=== PATIENT | female | born 1940 | race Caucasian/White ===

== ENCOUNTER 2019-04-24 12:36 | Emergency (ER) | payer OTHER ==
[~2019-04-24] VITALS: Ht 160 cm; Wt 57.2 kg
[2019-04-24] MEDS ORDERED: HYDROMORPHONE 1 MG/1 ML DISP.SYRIN IV ONE ×3 (12:45→15:30)
[2019-04-24] MEDS ORDERED: ONDANSETRON 4 MG/2 ML VIAL IV ONE ×2 (12:45→15:30)
[2019-04-24] MEDS ORDERED: HYDROMORPHONE 1 MG/1 ML DISP.SYRIN ONE ×3 (12:55→15:27)
[2019-04-24] MEDS ORDERED: ONDANSETRON 4 MG/2 ML VIAL ONE ×2 (12:55→15:28)
[2019-04-24 13:06] LABS: BASOPHILS # (AUTO) 0.1 K/uL (0.0-8.0); BASOPHILS % (AUTO) 0.7 % (0.0-2.0); EOSINOPHILS # (AUTO) 0.2 K/uL (0.0-0.7); EOSINOPHILS % (AUTO) 2.5 % (0.0-7.0); HEMATOCRIT 41.9 % (31.2-41.9); HEMOGLOBIN 14.2 g/dL (10.9-14.3); LYMPHOCYTES # (AUTO) 0.6 K/uL (20.0-40.0); LYMPHOCYTES % (AUTO) 7.8 % (20.5-51.5); MEAN CORPUSCULAR HEMOGLOBIN 29.6 uug (24.7-32.8); MEAN CORPUSCULAR HGB CONC 34 g/dL (32.3-35.6); MEAN CORPUSCULAR VOLUME 87.6 fL (75.5-95.3); MONOCYTES # (AUTO) 0.4 K/uL (2.0-10.0); MONOCYTES % (AUTO) 4.8 % (0.0-11.0); NEUTROPHILS # (AUTO) 6.9 K/uL (1.8-8.9); NEUTROPHILS % (AUTO) 84.2 % (38.5-71.5); PLATELET COUNT (AUTO) 140 K/uL (179-408); RED BLOOD CELL COUNT(AUTO) 4.78 MIL/uL (3.63-4.92); WHITE BLOOD COUNT (AUTO) 8.2 K/uL (3.8-11.8)
--- NOTE | 2019-04-24 13:08 | NUR ---
PT IS IN ROOM #1A. DR FRANCO EVALUATED THE PT.
[2019-04-24 13:21] LABS: CARBON DIOXIDE 24 mmol/L (21-32); CHLORIDE 96 mmol/L (98-107); CREATININE 1.1 mg/dL (0.6-1.3); GLUCOSE 96 mg/dL (74-106); POTASSIUM 4.6 mmol/L (3.5-5.1); UREA NITROGEN, BLOOD 22 mg/dL (7-18)
[2019-04-24 13:27] LABS: ALANINE AMINOTRANSFERASE 21 U/L (14-59); ALKALINE PHOSPHATASE 128 U/L (50-136); ASPARTATE AMINOTRANSFERASE 24 U/L (15-37); BILIRUBIN,TOTAL 0.6 mg/dL (0.2-1.0); TOTAL PROTEIN, SERUM 8.3 g/dL (6.4-8.2)
[2019-04-24 13:28] LABS: BILIRUBIN,DIRECT < 0.1 mg/dL (0.0-0.2)
[2019-04-24] MEDS ORDERED: LOPERAMIDE HCL 2 MG CAPSULE PO ONE (14:00)
[2019-04-24] MEDS ORDERED: LABETALOL HCL 100 MG/20 ML VIAL IV ONE ×3 (14:00→16:00)
[2019-04-24] MEDS ORDERED: LABETALOL HCL 100 MG/20 ML VIAL ONE (14:04)
[2019-04-24] MEDS ORDERED: LOPERAMIDE HCL 2 MG CAPSULE ONE (14:05)
--- NOTE | 2019-04-24 15:09 | NUR ---
DR FRANCO TALKED TO [facility] SKATE SHOP ATTENDANT. PT IS GOING TO BE ACCEPTED BY [facility]. CASE # [id number].
[2019-04-24] MEDS ORDERED: METOCLOPRAMIDE HCL 10 MG/2 ML VIAL ONE (16:00)
[2019-04-24] MEDS ORDERED: METOCLOPRAMIDE HCL 10 MG/2 ML VIAL IV ONE (16:00)
[2019-04-24] MEDS ORDERED: diphenhydrAMINE 50 MG/1 ML VIAL IV ONE (16:00)
[2019-04-24] MEDS ORDERED: diphenhydrAMINE 50 MG/1 ML VIAL ONE (16:00)
[2019-04-24 16:04] VITALS: BP 203/98
--- NOTE | 2019-04-24 16:28 | NUR ---
PT WAS TRANSFERED TO [facility] VIA [facility]BULANCE. ADMITTING MD IS DR PIERRE. REPORT WAS GIVEN TO CERTIFIED INCOME TAX PREPARERERIC HAIR. NO S/S AT THE TIME OF TRANSFER.
== END 2019-04-24 16:37 | disposition short-term general hospital (02) ==
LOC: ER 12:36
DX: I10 Essential (primary) hypertension (principal); R51 Headache; J45.909 Unspecified asthma, uncomplicated; Z60.2 Problems related to living alone; Z90.49 Acquired absence of other specified parts of digestive tract
CPT/HCPCS: 36415; 70450; 71045; 80048; 80076; 84484; 85025; 85730; 93005; 96374; 96375; 96376; 99285; J1170 ×3; J1200; J2405 ×2; J2765; J3490; 70030-TC

== ENCOUNTER 2020-09-23 00:31 | Inpatient (IN) | payer OTHER ==
[~2020-09-23] VITALS: Ht 154.9 cm; Wt 61.7 kg
[2020-09-23] VITALS (35 sets, daily range): BP systolic 68–166; BP diastolic 37–93
--- NOTE | 2020-09-23 00:50 | NUR ---
Pt BIB [facility] from home c/o generalized body weakness and stated she has "chills". Pt A/O x3, no SOB or labored breathing, afebrile. Denies CP/pressure. Clear speech, complete sentences. No GI/ distress.
--- NOTE | 2020-09-23 01:00 | NUR ---
Dr. Martínez at bedside, MSE in progress.
[2020-09-23] MEDS ORDERED: ACETAMINOPHEN ES 500 MG TABLET PO ONE (01:30)
[2020-09-23] MEDS ORDERED: IV NORMAL SALINE 1000 ML BAG IV ONE ×3 (01:30→03:45)
[2020-09-23] MEDS ORDERED: IBUPROFEN 600 MG TABLET PO ONE (01:30)
[2020-09-23] MEDS ORDERED: CEFEPIME HCL 2 G in IV DEXTROSE 5% 100 ML IV ONE (01:30)
[2020-09-23] MEDS ORDERED: IBUPROFEN 600 MG TABLET ONE (01:45)
[2020-09-23] MEDS ORDERED: ACETAMINOPHEN ES 500 MG TABLET ONE (01:45)
[2020-09-23] MEDS: levoFLOXacin 750 MG/D5W 150 ML PIGGYBACK IV ONE (01:50)
[2020-09-23 02:06] LABS: HEMATOCRIT 44.3 % (31.2-41.9); MEAN CORPUSCULAR HEMOGLOBIN 29.6 uug (24.7-32.8); MEAN CORPUSCULAR VOLUME 89.4 fL (75.5-95.3); PLATELET COUNT (AUTO) 171 K/uL (179-408)
[2020-09-23 02:12] LABS: CARBON DIOXIDE 23 mmol/L (21-32); CHLORIDE 93 mmol/L (98-107); CREATININE 1.4 mg/dL (0.6-1.3); GLUCOSE 97 mg/dL (74-106); POTASSIUM 5.1 mmol/L (3.5-5.1); UREA NITROGEN, BLOOD 34 mg/dL (7-18)
[2020-09-23 02:16] LABS: MAGNESIUM 2.1 mg/dL (1.8-2.4); PHOSPHOROUS 3.5 mg/dL (2.5-4.9)
[2020-09-23 02:21] LABS: ALANINE AMINOTRANSFERASE 25 U/L (14-59); ALKALINE PHOSPHATASE 131 U/L (50-136); ASPARTATE AMINOTRANSFERASE 30 U/L (15-37); BILIRUBIN,DIRECT 0.2 mg/dL (0.0-0.2); BILIRUBIN,TOTAL 0.7 mg/dL (0.2-1.0); TOTAL PROTEIN, SERUM 8.6 g/dL (6.4-8.2)
[2020-09-23] MEDS ORDERED: ASPIRIN 81 MG TAB.CHEW PO ONE (02:30)
[2020-09-23] MEDS ORDERED: CLOPIDOGREL 75 MG TABLET PO ONE (02:30)
[2020-09-23] MEDS ORDERED: ENOXAPARIN SODIUM 60 MG/0.6 ML DISP.SYRIN SQ ONE ×2 (02:30→03:14)
--- NOTE | 2020-09-23 02:45 | NUR ---
Pt taken down for CT.
[2020-09-23] MEDS ORDERED: levoFLOXacin 750MG/D5W 150 ML IV ONE (02:51)
[2020-09-23 02:52] LABS: *BILIRUBIN,URIN NEGATIVE (NEGATIVE); *BLOOD, URINE 2+ (NEGATIVE); *COLOR,URINE YELLOW (YELLOW); *KETONES,URINE NEGATIVE (NEGATIVE); *UROBILINOGEN,URINE 0.2 E.U./dl (NORMAL); LEUKOCYTE ESTERASE ,URINE 2+ (NEGATIVE); NITRITE, URINE POSITIVE (NEGATIVE); PH,URINE 6.5 (5.0-8.0); UGLUCOSE NEGATIVE (NEGATIVE)
[2020-09-23 03:01] LABS: *CLARITY,URINE HAZY (CLEAR)
[2020-09-23] MEDS ORDERED: CLOPIDOGREL 75 MG TABLET ONE (03:14)
[2020-09-23] MEDS ORDERED: ASPIRIN 81 MG TAB.CHEW ONE (03:14)
[2020-09-23 03:17] LABS: BACTERIA,URINE MANY /HPF (NONE SEEN); SQUAMOUS EPITHELIAL CELL,UR MODERATE /HPF (NONE SEEN); WBC,URINE 20-50 /HPF (0-3)
[2020-09-23] MEDS ORDERED: CEFTRIAXONE 2 G in IV DEXTROSE 5% 100 ML IV ONE (03:30)
[2020-09-23 03:31] LABS: ABG HCO3 14.1 mmol/L; ABG PCO2 26.9 mmHg (35.0-45.0); ABG PH 7.337 (7.350-7.450); ABG PO2 62.1 mmHg (75.0-100.0); ABG SITE RIGHT RADIAL; ABG TOTAL HEMOGLOBIN 13.8 G/dL (12.0-16.0); COHb 1.1 % (0.5-1.5); MetHb 0.3 % (0.0-1.5); O2Hb 90.2 % (94.0-97.0)
[2020-09-23] MEDS ORDERED: VANCOMYCIN IV 1,250 MG in IV DEXTROSE 5% 250 ML IV ONE (03:45)
[2020-09-23] MEDS ORDERED: PIPERACILLIN SODIUM/TAZOBACTAM 3.375 G in IV DEXTROSE 5% 50 ML IV ONE (03:45)
[2020-09-23] MEDS ORDERED: SODIUM BICARBONATE 8.4% 50 MEQ/50 ML VIAL IV ONE (03:45)
--- NOTE | 2020-09-23 03:51 | NUR ---
Called [facility], Sy Suh paged.
[2020-09-23] MEDS ORDERED: METHYLCELLULOSE PO (04:12)
[2020-09-23] MEDS ORDERED: TRIA80OI2 TP (04:12)
[2020-09-23] MEDS ORDERED: CLON0.5T4 PO (04:12)
[2020-09-23] MEDS ORDERED: SPIR25TA6 PO (04:12)
[2020-09-23] MEDS ORDERED: COLC0.6C3 PO (04:12)
[2020-09-23] MEDS ORDERED: MULT-213 PO (04:12)
[2020-09-23] MEDS ORDERED: TERBINAFINE TOP (04:12)
[2020-09-23] MEDS ORDERED: ACET-73 PO (04:12)
[2020-09-23] MEDS ORDERED: LEVO50TA8 PO (04:12)
[2020-09-23] MEDS ORDERED: cholecalciferol PO (04:12)
[2020-09-23] MEDS ORDERED: FAMO20TA8 PO (04:12)
[2020-09-23] MEDS ORDERED: CLON0.3T PO (04:12)
[2020-09-23] MEDS ORDERED: ALBU8.5H8 IH (04:12)
[2020-09-23] MEDS ORDERED: ATEN50TA PO (04:12)
[2020-09-23] MEDS ORDERED: ROSU10TA2 PO (04:12)
[2020-09-23] MEDS ORDERED: VANCOMYCIN HCL 500 MG VIAL ONE (04:19)
[2020-09-23] MEDS ORDERED: VANCOMYCIN 1000 MG VIAL ONE (04:19)
[2020-09-23] MEDS ORDERED: CEFTRIAXONE 1 G VIAL ONE (04:19)
[2020-09-23] MEDS ORDERED: SODIUM BICARBONATE 8.4% 50 MEQ/50 ML DISP.SYRIN IV ONE (04:20)
[2020-09-23] MEDS ORDERED: PIPERACILLIN SODIUM/TAZO 3.375 GM VIAL ONE (04:20)
--- NOTE | 2020-09-23 04:20 | NUR ---
Pt assisted using bed flores, denies any pain while urinating, no foul odor, and clear.
[2020-09-23] MEDS ORDERED: COLCHICINE 0.6 MG TABLET PO PRN (05:00)
[2020-09-23] MEDS ORDERED: ALBUTEROL SULFATE 8 GM HFA.AER.AD IH PRN (05:00)
[2020-09-23] MEDS ORDERED: NOREPINEPHRINE BITARTRATE 8 MG in IV NORMAL SALINE 242 ML IV PRN ×3 (05:30→13:30)
--- NOTE | 2020-09-23 05:36 | NUR ---
Gave report to jose raul Rebolledo going to tele room 311.
--- NOTE | 2020-09-23 06:21 | NUR ---
Patient is resting comfortably in bed with eyes closed. Breathing even and unlabored.
--- NOTE | 2020-09-23 07:06 | NUR ---
Pt. admitted to tele , under care of Dr. Sy Suh Dx: sepsis Belongs List completed
--- NOTE | 2020-09-23 07:08 | NUR ---
Received this admission from ER, per nasir this 79 female, with the chief complaint of weakness, shaking, sweating with the diagnosis Sepsis UTI, Hyponatremia. Transferred to bed comfortably. Routine admission care rendered. Awake, alert,oriented x 4, able to move all extremities on purpose. Placed on Tele SR 79. Wallace catheter to drainage bag with yellow urine.
[2020-09-23] MEDS ORDERED: MAGNESIUM HYDROXIDE 30 ML LIQUID UDC PO PRN (08:00)
[2020-09-23] MEDS ORDERED: Z GUARD REMEDY PASTE 57 GM TUBE TOP PRN (08:00)
[2020-09-23] MEDS ORDERED: CLONIDINE HCL 0.3 MG TABLET PO SCH (09:00)
[2020-09-23] MEDS ORDERED: FAMOTIDINE 20 MG TABLET PO SCH (09:00)
[2020-09-23] MEDS ORDERED: SPIRONOLACTONE 25 MG TABLET PO SCH (09:00)
[2020-09-23] MEDS: ASPIRIN EC 81 MG TABLET.DR PO SCH (09:10)
[2020-09-23] MEDS: LEVOTHYROXINE SODIUM 50 MCG TABLET PO SCH (09:10)
[2020-09-23] MEDS: ATENOLOL 50 MG TABLET PO SCH (09:11)
[2020-09-23] MEDS: ALBUTEROL SULFATE 2.5 MG/3 ML NEBU NEB PRN ×4 (09:38→23:14)
--- NOTE | 2020-09-23 11:15 | NUR ---
Noted confusion when patient was talking to the son, further assessment done, patient speaking in Vietnamese now, oriented to name only. Vital signs taken, noted hypotension. Able to move all extremities on purpose. Bala Goodrich informed.
--- NOTE | 2020-09-23 11:45 | NUR ---
NS bolus given as ordered. CT head stat called.
[2020-09-23] MEDS ORDERED: MEROPENEM 1 G in IV NORMAL SALINE 100 ML IV SCH (12:00)
[2020-09-23] MEDS ORDERED: IV NS 1000 ML 1,000 ML IV ONE (12:15)
[2020-09-23] MEDS ORDERED: IV LACTATED RINGERS SOLUTION 1,000 ML IV ONE (12:15)
[2020-09-23 12:35] LABS: CARBON DIOXIDE 18 mmol/L (21-32); CHLORIDE 101 mmol/L (98-107); CREATININE 1.6 mg/dL (0.6-1.3); GLUCOSE 94 mg/dL (74-106); UREA NITROGEN, BLOOD 32 mg/dL (7-18)
--- NOTE | 2020-09-23 13:36 | NUR ---
still hypotensive. LR bolus started. Transferred to CCU as ordered
--- NOTE | 2020-09-23 14:04 | NUR ---
Received patient from 3rd floor nurse Eugenia. Patient alert oriented x3, somewhat confused about the date. Neuro checks performed, patient able to follow commands. Connected to monitoring and MAP >60 at this time, 2L nasal cannula, HR 85 bpm.
--- NOTE | 2020-09-23 14:07 | NUR ---
Notified Dr. Zuñiga of patients admission to ICU and status of hypotension, confusion and inquired about anticoagulation. Dr. Zuñiga stated to continue as planned with Levophed and no anticoagulation.
--- NOTE | 2020-09-23 14:15 | NUR ---
DEE DURAND SPEECH LANGUAGE PATHOLOGY ASSISTANT AT BEDSIDE FOR MID LINE INSERTION
--- NOTE | 2020-09-23 15:10 | NUR ---
CALLED DEE DURAND RE: PRELIMINARY BLOOD CULTURE RESULTS FROM MILLIE @ LAB : GRAM (-) ON 2 SETS OF BLOOD CULTURE.
--- NOTE | 2020-09-23 15:15 | NUR ---
Received Troponin results from Bobby @ Lab : 1.375. Trending down, not notified.
[2020-09-23] MEDS ORDERED: IV NORMAL SALINE 250 ML IV ONE (16:07)
[2020-09-23] MEDS ORDERED: SWABABLE VALVE TRANSFER SET EA MC ONE (16:07)
[2020-09-23] MEDS ORDERED: IOHEXOL 350 100 ML INFUS..BTL ONE (16:07)
[2020-09-23 16:23] LABS: HEMATOCRIT 32.2 % (31.2-41.9); MEAN CORPUSCULAR HEMOGLOBIN 30.4 uug (24.7-32.8); PLATELET COUNT (AUTO) 104 K/uL (179-408)
[2020-09-23] MEDS ORDERED: BLOOD SUGAR DIAGNOSTIC 1 EACH STRIP VI SCH ×3 (16:30→18:00)
[2020-09-23 16:36] LABS: CARBON DIOXIDE 19 mmol/L (21-32); CHLORIDE 103 mmol/L (98-107); CREATININE 1.5 mg/dL (0.6-1.3); GLUCOSE 81 mg/dL (74-106); POTASSIUM 4.1 mmol/L (3.5-5.1); UREA NITROGEN, BLOOD 28 mg/dL (7-18)
--- NOTE | 2020-09-23 17:20 | NUR ---
1545 - RN at bedside for patient re-assessment. Patient noted to be sleeping with slight tremors on bilateral upper and lower extremities. When waking the patient up, patient noted to be very lethargic, but responds with repeated verbal and tactile stimuli or painful stimuli. She appears to be wanting to answer questions and following commands but very sleepy/drowsy. Blood Sugar check done via Accu-check : 87. 1550 - Bala Goodrich MENTAL HYGIENIST was notified and he stated that he will come up to see patient. Initial NIHSS done : 2. Pt noted with L sided facial droop and altered level of consciousness. 1555 - Bala Goodrich MENTAL HYGIENIST at bedside for assessment. 1559 - CODE STROKE called. 1600 - Nursing asbestos pipe supervisor/Rehab Assistant arrived. Labs drawn. 1608 - Patient taken to CT scan. 1636 - Patient back from CT. Lab called about Troponin 1.313, elevated but trending down. Bala Goodrich NP aware with no new orders. 1645 - Tele-Neurology activated. No Alteplase ordered. CT resulted at 1625 and repeated to Tele-Neuro by Kp DE LA TORRE 1645 - NIHSS redone: 0. 1700 - Nursing swallow screen done. 1720 - S/w Bala Goodrich NP and updated on patient's condition. Pt passed nursing swallow screen. Per MD, keep NPO until ST swallow evaluation. Accuchecks every 6 hours. Hourly neuro check thereafter.
[2020-09-23] MEDS ORDERED: DEXTROSE 50% 50 ML DISP.SYRIN IV PRN (17:45)
[2020-09-23] MEDS: BLOOD SUGAR DIAGNOSTIC 1 EACH STRIP VI SCH ×2 (18:05→23:39)
--- NOTE | 2020-09-23 20:00 | NUR ---
ROUNDS ,MADE PATIENT IN BED AAOX3,ABLE TO FOLLOW COMMANDS .MAEX4,NOTED LEFT SLIGHT FACIAL DROOP as ENDORSED IT BEEN THERE PER SON THAT LIVED WITH PATIENT . NO RESPIRATORY DISTRESS NOTED SATURATION 100% RR 23.
[2020-09-23] MEDS: ACETAMINOPHEN 325 MG TABLET PO PRN (20:33)
[2020-09-23] MEDS: ATORVASTATIN 40 MG TABLET PO SCH (20:33)
--- NOTE | 2020-09-23 20:37 | NUR ---
called respiratory therapist for breathing treatment as requested by patient she said shes on Ventolin breathing treatment history of asthma. respiratory therapist came and breathing treatment was given .tolerating 02 nasal cannula at 1 liter /min, saturation 100% ,22 RR
[2020-09-23] MEDS ORDERED: ATORVASTATIN 40 MG TABLET PO SCH (21:00)
[2020-09-23] MEDS: CLONAZEPAM 0.5 MG TABLET PO PRN (21:04)
--- NOTE | 2020-09-23 21:15 | NUR ---
patient called and requesting bed flores wants to do no.2 ,patient had moderate amt of form stool . changed soiled linens and gown . patient able to help in turning . able to moved BUE AND BLE .
--- NOTE | 2020-09-23 21:41 | NUR ---
BRITT HELM came and spoked with patient examined patient ,pts follows commands aaox3 able to moved right and left upper and lower extremities, strong hand fire manager and strength able to squeezed hand no weakness noted .
[2020-09-23] MEDS: MEROPENEM 1 G in IV NORMAL SALINE 100 ML IV SCH (23:29)
--- NOTE | 2020-09-23 23:30 | NUR ---
respiratory therapist at b/s giving patient respiratory treatment .
--- NOTE | 2020-09-23 23:48 | NUR ---
fingerstick done blood sugar 56 mg/dl rechecked done 64mg/dl ,patient aaox3,asymptomatic and alert ,given applejuice able to swallow tolerated applejuice .
[2020-09-24] VITALS (23 sets, daily range): BP systolic 105–187; BP diastolic 48–88
--- NOTE | 2020-09-24 01:50 | NUR ---
patients son called and wants to speak with her mother ,connected call to patients room patient able to speaks with patient son ,patient aaox3
[2020-09-24] MEDS: ALBUTEROL SULFATE 2.5 MG/3 ML NEBU NEB PRN ×2 (03:51→11:08)
--- NOTE | 2020-09-24 03:51 | NUR ---
called respiratory therapist c/o patient request for breathing treatment as per patient her right chest is tight,auscultated right and left lung its clear with diminished on the left lung.breathing even and unlabored . respiratory therapist came and auscultated lungs as per Praneeth respiratory therapist both right and left lungs sounds clear .RR 22 saturation on 2 l/min nasal cannula 100% .
[2020-09-24] MEDS ORDERED: VANCOMYCIN IV 750 MG in IV DEXTROSE 5% 250 ML IV SCH (05:00)
--- NOTE | 2020-09-24 05:00 | NUR ---
COLLECTED URINE AND GIVEN TO BOX TOE FLANGER STITCHDOWNS FOR URINE RANDOM ,URINE NA ETC.
[2020-09-24] MEDS: CLONAZEPAM 0.5 MG TABLET PO PRN ×2 (05:09→21:43)
[2020-09-24 05:10] LABS: MEAN CORPUSCULAR HEMOGLOBIN 29.8 uug (24.7-32.8)
[2020-09-24] MEDS: ACETAMINOPHEN 325 MG TABLET PO PRN ×3 (05:10→20:35)
[2020-09-24 05:13] LABS: HEMATOCRIT 35.6 % (31.2-41.9); MEAN CORPUSCULAR VOLUME 89.6 fL (75.5-95.3); PLATELET COUNT (AUTO) 115 K/uL (179-408)
[2020-09-24] MEDS: BLOOD SUGAR DIAGNOSTIC 1 EACH STRIP VI SCH ×4 (05:19→18:55)
[2020-09-24 05:21] LABS: ALANINE AMINOTRANSFERASE 35 U/L (14-59); ALKALINE PHOSPHATASE 93 U/L (50-136); ASPARTATE AMINOTRANSFERASE 55 U/L (15-37); BILIRUBIN,TOTAL 0.8 mg/dL (0.2-1.0); CARBON DIOXIDE 20 mmol/L (21-32); CHLORIDE 100 mmol/L (98-107); CHOLESTEROL 61 mg/dL (<200); CREATININE 1.6 mg/dL (0.6-1.3); GLUCOSE 70 mg/dL (74-106); HDL CHOLESTEROL 36 mg/dL (40-60); MAGNESIUM 1.4 mg/dL (1.8-2.4); PHOSPHOROUS 3.3 mg/dL (2.5-4.9); POTASSIUM 4.2 mmol/L (3.5-5.1); TOTAL PROTEIN, SERUM 5.7 g/dL (6.4-8.2); TRIGLYCERIDES 56 MG/DL (30-150); UREA NITROGEN, BLOOD 28 mg/dL (7-18)
[2020-09-24] MEDS ORDERED: NITROGLYCERIN 0.4 MG/TAB BOTTLE SL PRN (06:00)
[2020-09-24] MEDS: LEVOTHYROXINE SODIUM 50 MCG TABLET PO SCH (06:03)
--- NOTE | 2020-09-24 06:04 | NUR ---
GIVEN X1 NGT SUBLINGUAL C/O CHEST PAIN 8/10 , RR 20 SATURATION 100% HR 91 SINUS RHYTHM .WILL CONTINUE TO MONITOR CHEST PAIN .
--- NOTE | 2020-09-24 06:09 | NUR ---
called fish liver sorter c/o chest pain 09/27.bp 131/56(MAP 81) heart rate SR 97 saturation 98% RR 18. patient verbalized chest pain and claimed at home she takes NGT sublingual ,spoked with MEGHNA POLANCO ,with orders to give NTG sublingual PRN FOR CHEST PAIN and no EKG NEEDED .EKG CANCELLED .
[2020-09-24 06:23] LABS: BAND % (MANUAL) 28 % (0-10); LYMPHOCYTES % (MANUAL) 2 % (20-40); METAMYELOCYTES % 2 % (0-1); MYELOCYTES % 1 % (0-0); NEUTROPHILS % (MANUAL) 67 % (42-75)
--- NOTE | 2020-09-24 06:25 | NUR ---
ASKED PATIENT IF HER CHEST PAIN IMPROVED SHE SAID YES AND SHE FEELS MUCH BETTER .
[2020-09-24 08:21] LABS: *CREATININE,URINE 48.2 mg/dL (30-125); *URINE TOTAL PROTEIN RANDOM 31.3 mg/dL (<150/24HR)
[2020-09-24] MEDS ORDERED: ASPIRIN 81 MG TAB.CHEW PO SCH (09:00)
[2020-09-24] MEDS: ASPIRIN EC 81 MG TABLET.DR PO SCH (09:59)
[2020-09-24] MEDS: CLOPIDOGREL 75 MG TABLET PO SCH (10:00)
[2020-09-24] MEDS: NITROGLYCERIN OINT 1 GM PACKET TP SCH ×2 (10:00→20:30)
[2020-09-24] MEDS: MAGNESIUM SULFATE/D5W 100 ML IV SCH ×2 (10:01→10:50)
[2020-09-24] MEDS: ATENOLOL 50 MG TABLET PO SCH (10:03)
--- NOTE | 2020-09-24 10:30 | NUR ---
Contacted warehouse shipping supervisor and notified her that unable to obtain acls AMBULANCE for transfer to MRI with ACLS status. [employer] French Teacher contacted the watch case polisher. integration project manager discussed with Bala fontenot and agreed to wait till saturday for ACLS transport to MRI.
--- NOTE | 2020-09-24 11:10 | NUR ---
Patient reports trouble breathing, patient asked to do some slow breathing exercises. And called RT for a breathing treatment.
[2020-09-24] MEDS: MEROPENEM 1 G in IV NORMAL SALINE 100 ML IV SCH (12:34)
[2020-09-24] MEDS: INSULIN REGULAR, HUMAN 300 UNIT/3 ML VIAL SQ PRN (12:38)
--- NOTE | 2020-09-24 18:08 | NUR ---
juice given for low blood sugar, recheck in fifteen minutes to be performed.
[2020-09-24] MEDS: ONDANSETRON 4 MG/2 ML VIAL IV PRN ×2 (18:23→21:43)
--- NOTE | 2020-09-24 18:25 | NUR ---
patient had an episode of emesis, resolved with zofran.
--- NOTE | 2020-09-24 18:58 | NUR ---
patient has been stable throughout the shift. neurochchecks frequently performed to reveal no new disability. Patient seen by PT, and was able to take pills whole and reported results to Bala to resume diet. Patient did not tolerate meal at dinner and vomited. Currently patient is hypertensive within parameters specified, afebrile, headache noted which tylenol was administered. Patient downgraded to telemetry status. MRI to be completed saturday when patient able to be transported with ACLS ambulance.
--- NOTE | 2020-09-24 19:45 | NUR ---
TURNED AND REPOSITION PATIENT APPLIED LOTION TO THE SACRAL AND BACK AREA , GIORDANO CATHETER DONE .AFEBRILE 98.6 F VIA ORAL.
[2020-09-24] MEDS: ATORVASTATIN 40 MG TABLET PO SCH (20:29)
--- NOTE | 2020-09-24 20:35 | NUR ---
PATIENT CALLED AND VERBALIZED SHES HAVING HEADACHE 09/27 ,GIVEN TYLENOL FOR HEADACHE . TOOK MEDICATION WITH WATER .
--- NOTE | 2020-09-24 21:00 | NUR ---
NTG PASTE APPLIED TO THE RIGHT CHEST WALL ,BP 175/77 (114), WILL CONTINUE TO MONITOR BP.
--- NOTE | 2020-09-24 21:43 | NUR ---
PATIENT CALLED AND VERBALIZED SHES NAUSEOUS GIVEN ZOFRAN FOR NAUSEA.PROVIDED EMESIS BAG.
--- NOTE | 2020-09-24 22:00 | NUR ---
BP 183/84(129)-CALLED [employer] SPOKED WITH MEGHNA POLANCO AND WITH ORDER FOR HYDRALAZINE PO FOR SBP >160 MM/HG .
[2020-09-24] MEDS: hydrALAZINE HCL 50 MG TABLET PO SCH (22:13)
--- NOTE | 2020-09-24 22:13 | NUR ---
HYDRALAZINE PO GIVEN BP 183/88 (124 ) HR -96 WILL CONTINUE TO MONITOR BP .
--- NOTE | 2020-09-24 22:30 | NUR ---
BRITT OLEARY CAME AND VISITED PATIENT SPOKED WITH PATIENT AND DISCUSSED PLAN OF CARE .
--- NOTE | 2020-09-24 23:00 | NUR ---
BP -156/76 ( 110) .WILL CONTINUE TO MONITOR .
[2020-09-25] VITALS (10 sets, daily range): BP systolic 139–191; BP diastolic 61–101
[2020-09-25] MEDS ORDERED: MEROPENEM 500 MG in IV NORMAL SALINE 50 ML IV SCH
[2020-09-25] MEDS: BLOOD SUGAR DIAGNOSTIC 1 EACH STRIP VI SCH ×4 (00:29→18:12)
--- NOTE | 2020-09-25 04:30 | NUR ---
am care done ,bath patient changed soiled linens and gown . Wallace care done and oral care done .
--- NOTE | 2020-09-25 05:19 | NUR ---
collected urine for u/a and c and s and per recommendation of the urine results form micro.
[2020-09-25] MEDS: hydrALAZINE HCL 50 MG TABLET PO SCH ×3 (05:35→22:07)
--- NOTE | 2020-09-25 05:45 | NUR ---
fingerstick done and follow insulin sliding scale .
[2020-09-25 05:57] LABS: *BILIRUBIN,URIN NEGATIVE (NEGATIVE); *BLOOD, URINE 2+ (NEGATIVE); *CLARITY,URINE CLEAR (CLEAR); *COLOR,URINE YELLOW (YELLOW); *KETONES,URINE 1+ (NEGATIVE); *UROBILINOGEN,URINE 0.2 E.U./dl (NORMAL); LEUKOCYTE ESTERASE ,URINE TRACE (NEGATIVE); NITRITE, URINE NEGATIVE (NEGATIVE); UGLUCOSE NEGATIVE (NEGATIVE)
[2020-09-25 06:01] LABS: HEMATOCRIT 37.6 % (31.2-41.9); MEAN CORPUSCULAR HEMOGLOBIN 29.8 uug (24.7-32.8); MEAN CORPUSCULAR VOLUME 89.7 fL (75.5-95.3); PLATELET COUNT (AUTO) 137 K/uL (179-408)
[2020-09-25 06:11] LABS: BILIRUBIN,TOTAL 1.2 mg/dL (0.2-1.0); CREATININE 1.3 mg/dL (0.6-1.3); MAGNESIUM 2.1 mg/dL (1.8-2.4); POTASSIUM 4.3 mmol/L (3.5-5.1); TOTAL PROTEIN, SERUM 6.6 g/dL (6.4-8.2)
[2020-09-25] MEDS: PANTOPRAZOLE SODIUM 40 MG TABLET.DR PO SCH (06:20)
[2020-09-25] MEDS: LEVOTHYROXINE SODIUM 50 MCG TABLET PO SCH (06:21)
--- NOTE | 2020-09-25 06:39 | NUR ---
patient had chest xray and kub done at bedside .
[2020-09-25] MEDS: ALBUTEROL SULFATE 2.5 MG/3 ML NEBU NEB PRN (08:26)
[2020-09-25] MEDS: ASPIRIN EC 81 MG TABLET.DR PO SCH ×2 (08:39→08:54)
[2020-09-25] MEDS: CLOPIDOGREL 75 MG TABLET PO SCH (08:40)
[2020-09-25] MEDS: NITROGLYCERIN OINT 1 GM PACKET TP SCH ×2 (08:40→20:22)
[2020-09-25] MEDS: ATENOLOL 50 MG TABLET PO SCH (08:40)
[2020-09-25 09:12] LABS: RBC,URINE 50-80 /HPF (0-3); SQUAMOUS EPITHELIAL CELL,UR FEW /HPF (NONE SEEN)
[2020-09-25] MEDS: ONDANSETRON 4 MG/2 ML VIAL IV PRN ×2 (09:58→16:24)
[2020-09-25 09:59] LABS: BAND % (MANUAL) 3 % (0-10); LYMPHOCYTES % (MANUAL) 1 % (20-40); MONOCYTES % (MANUAL) 3 % (2-10); NEUTROPHILS % (MANUAL) 93 % (42-75)
[2020-09-25] MEDS: METOCLOPRAMIDE HCL 10 MG/2 ML VIAL IV PRN ×2 (10:09→20:24)
[2020-09-25] MEDS ORDERED: hydrALAZINE HCL 20 MG/1 ML VIAL IV ONE (11:00)
[2020-09-25] MEDS ORDERED: METOCLOPRAMIDE HCL 10 MG/2 ML VIAL IV PRN (11:00)
[2020-09-25] MEDS: LORAZEPAM 2 MG/1 ML VIAL IV PRN ×2 (11:23→17:22)
[2020-09-25] MEDS: MEROPENEM 1 G in IV NORMAL SALINE 100 ML IV SCH (11:28)
--- NOTE | 2020-09-25 11:36 | NUR ---
Blood sugar noted at 133, patient unable to eat, no insulin coverage will be given at this time
[2020-09-25] MEDS: METOPROLOL TARTRATE 50 MG TABLET PO SCH ×4 (11:38→20:23)
--- NOTE | 2020-09-25 11:39 | NUR ---
Unable to tolerate PO meds, IV hydralazine given and PO Lopressor held at this time
[2020-09-25] MEDS ORDERED: NEUTRA PHOS PACKET PO ONE (15:30)
[2020-09-25] MEDS ORDERED: LABETALOL HCL 100 MG/20 ML VIAL IV PRN (16:00)
[2020-09-25] MEDS ORDERED: IOHEXOL 300MG/ML 100 ML INFUS..BTL ONE (17:13)
[2020-09-25] MEDS ORDERED: IV NORMAL SALINE 250 ML IV ONE (17:13)
[2020-09-25] MEDS ORDERED: SWABABLE VALVE TRANSFER SET EA MC ONE (17:13)
--- NOTE | 2020-09-25 19:05 | NUR ---
Received patient in bed resting comfortably. Patient was reported to be A/O x4, but she doesn't remember that she is in the hospital and thinks she is in her house, but remembers where she is when reoriented. Patient is ST on the monitor and hypertensive with SBP >170. patient has been reported to be nauseous with frequent vomiting, and has been refusing PO medications and her food. HAYDEE midline present and patent. Wallace present and patent. Bed alarm on.
--- NOTE | 2020-09-25 19:32 | NUR ---
Awaiting returned call from [place] for patient transfer for MRI, transfer to be arranged for by Tresa
--- NOTE | 2020-09-25 20:15 | NUR ---
Spoke with Dr. Goodrich in regard to the patients elevated blood pressure and her refusal to take her PO meds during the day. Dr. Goodrich said to try to get her to take her PO metoprolol which was due at 1800 as she is clear from ST and no longer NPO.
[2020-09-25] MEDS: ATORVASTATIN 40 MG TABLET PO SCH (20:22)
[2020-09-25] MEDS ORDERED: hydrALAZINE HCL 20 MG/1 ML VIAL IV PRN (20:30)
--- NOTE | 2020-09-25 20:40 | NUR ---
Patient was compliant and took her PO BP medications. Administered prn Reglan to prevent nausea and vomiting.
[2020-09-26] VITALS: BP 154/75
[2020-09-26] MEDS: MEROPENEM 1 G in IV NORMAL SALINE 100 ML IV SCH ×2 (00:14→11:13)
[2020-09-26] MEDS: METOPROLOL TARTRATE 50 MG TABLET PO SCH ×4 (00:14→17:26)
[2020-09-26] MEDS: BLOOD SUGAR DIAGNOSTIC 1 EACH STRIP VI SCH ×4 (00:34→17:26)
[2020-09-26 04:00] VITALS: BP 150/78
[2020-09-26 05:13] LABS: HEMATOCRIT 38.7 % (31.2-41.9); MEAN CORPUSCULAR HEMOGLOBIN 29.9 uug (24.7-32.8); MEAN CORPUSCULAR VOLUME 90.4 fL (75.5-95.3); PLATELET COUNT (AUTO) 158 K/uL (179-408)
[2020-09-26 05:21] LABS: PHOSPHOROUS 2.9 mg/dL (2.5-4.9)
[2020-09-26 05:30] LABS: CREATININE 1.2 mg/dL (0.6-1.3); POTASSIUM 4.7 mmol/L (3.5-5.1)
[2020-09-26] MEDS: LEVOTHYROXINE SODIUM 50 MCG TABLET PO SCH (06:39)
[2020-09-26] MEDS: PANTOPRAZOLE SODIUM 40 MG TABLET.DR PO SCH (06:40)
[2020-09-26] MEDS: hydrALAZINE HCL 50 MG TABLET PO SCH ×2 (06:40→13:31)
[2020-09-26 06:48] LABS: BAND % (MANUAL) 2 % (0-10); LYMPHOCYTES % (MANUAL) 3 % (20-40); MONOCYTES % (MANUAL) 1 % (2-10); NEUTROPHILS % (MANUAL) 94 % (42-75)
--- NOTE | 2020-09-26 07:40 | NUR ---
Received resting but easily arousable. No respiratory distress noted. Iv intact. Wallace catheter intact draining francesca urine. Verbalized she's feeling better today than yesterday. Will continue to monitor.
[2020-09-26 08:00] VITALS: BP 143/67
--- NOTE | 2020-09-26 09:00 | NUR ---
Attending Netta Goodrich in the unit to see and examine pt. report given and orders to down-grade pt. to telemetry status received and implemented.
[2020-09-26] MEDS: ONDANSETRON 4 MG/2 ML VIAL IV PRN (09:11)
[2020-09-26] MEDS: METOCLOPRAMIDE HCL 10 MG/2 ML VIAL IV PRN ×2 (09:17→17:50)
[2020-09-26] MEDS: CLOPIDOGREL 75 MG TABLET PO SCH (09:29)
[2020-09-26] MEDS: ASPIRIN EC 81 MG TABLET.DR PO SCH (09:29)
[2020-09-26] MEDS: NITROGLYCERIN OINT 1 GM PACKET TP SCH (09:29)
--- NOTE | 2020-09-26 10:08 | NUR ---
Patient with order for MRI Brain at [facility]. Arranged for orange picking supervisor by Ad at 1:30pm spoke with Porfirio. Davon at [facility] made aware and agreed. Patient made aware.
--- NOTE | 2020-09-26 10:30 | NUR ---
Received call from stacy Addendum: 09/26/20 at 1237 by PJ MORALES RN 1030: Received call from Yamilet. Patient will be transferred to [facility] for [facility]
[2020-09-26 11:46] VITALS: BP 144/84
[2020-09-26] MEDS: INSULIN REGULAR, HUMAN 300 UNIT/3 ML VIAL SQ PRN (12:41)
--- NOTE | 2020-09-26 13:11 | NUR ---
patient doing fairly well. encouraged to eat but she said she has no appetite. denies nausea or difficulty swallowing. talking on the phone with family
--- NOTE | 2020-09-26 13:38 | NUR ---
per dr. nikolay doll to give hydralazine for bp 147/70 p93.
--- NOTE | 2020-09-26 14:24 | NUR ---
patient at [facility] for scheduled mri at [facility]. picked up by ambulance 2:15pm per janitorial supervisor.
--- NOTE | 2020-09-26 16:18 | NUR ---
came back from scheduled mri. alert and oriented but sleepy. says it's hot outside. denies pain. connected back to telemetry.
--- NOTE | 2020-09-26 16:30 | NUR ---
received report from dr. hannah radiology re patient's mri result. read back and confirmed to sandy fontenot.
--- NOTE | 2020-09-26 16:55 | NUR ---
nihss stroke scale done and score reported to sandy fontenot.
[2020-09-26] MEDS ORDERED: ENSURE ENLIVE (VAN) 240 ML LIQUID PO SCH (17:00)
--- NOTE | 2020-09-26 17:55 | NUR ---
bc 151 mg/dl however patient states she doesn't have appetite to eat. no insulin coverage given at this time.
--- NOTE | 2020-09-26 18:45 | NUR ---
patient encouraged to eat but stated no appetite. reglan given with some relief. will continue to monitor.
--- NOTE | 2020-09-26 19:00 | NUR ---
received call from francisco javier collier at [facility]. patient will be admitted to [facility] bed [address] parts picker 8pm. called [facility] [phone] to give report. spoke to shantal who said someone will call back to get report. patient's son anna moses made aware and was appreciative. endorsed to night baker RN.
--- NOTE | 2020-09-26 19:15 | NUR ---
lashay camacho shift called the son , patient is being transferred to [facility] room 3914
--- NOTE | 2020-09-26 19:50 | NUR ---
dr colvin was here , at bedside , explained mri reuslts
[2020-09-26 20:00] VITALS: BP 161/76
--- NOTE | 2020-09-26 20:00 | NUR ---
report given to joycelyn Gonzalez telemetry nurse , history , admitting diagnosis , medication and procedure done and results , current mental status, iv ,vital signs
--- NOTE | 2020-09-26 20:11 | NUR ---
picking crew supervisor by [facility] , history given and vs and current medications given , mental status , , discharge packet , and belongings sent
--- NOTE | 2020-09-26 20:13 | NUR ---
[facility] ambulance was informed , patient is going to [facility] , room 5204, , report given to angel
[2020-09-26] MEDS ORDERED: MELATONIN 3 MG TABLET PO SCH (21:00)
== END 2020-09-26 20:00 | disposition short-term general hospital (02) | DRG 871 ==
LOC: ER 00:34 → TELE3 06:42 → CCU 13:42
PROVIDERS: ADMIT Nurse Practitioner Acute Care; ATTEND Nurse Practitioner Acute Care
PROC: 05H933Z Insertion of Infusion Device into Right Brachial Vein, Percutaneous Approach (ICD-10-PCS; principal; 2020-09-23)
DX: A41.51 Sepsis due to Escherichia coli [E. coli] (principal); N17.0 Acute kidney failure with tubular necrosis; J96.01 Acute respiratory failure with hypoxia; I21.A1 Myocardial infarction type 2; J69.0 Pneumonitis due to inhalation of food and vomit; N39.0 Urinary tract infection, site not specified; E87.1 Hypo-osmolality and hyponatremia; E87.2 Acidosis; G93.49 Other encephalopathy; G45.9 Transient cerebral ischemic attack, unspecified; Z85.3 Personal history of malignant neoplasm of breast; E86.0 Dehydration; E78.5 Hyperlipidemia, unspecified; J45.909 Unspecified asthma, uncomplicated; E83.42 Hypomagnesemia; E83.89 Other disorders of mineral metabolism; I12.9 Hypertensive chronic kidney disease with stage 1 through stage 4 chronic kidney disease, or unspecified chronic kidney disease; N18.9 Chronic kidney disease, unspecified; D63.1 Anemia in chronic kidney disease; Z90.5 Acquired absence of kidney; Z20.822 Contact with and (suspected) exposure to COVID-19; I69.398 Other sequelae of cerebral infarction; R26.89 Other abnormalities of gait and mobility; I69.392 Facial weakness following cerebral infarction; R80.9 Proteinuria, unspecified; Z90.12 Acquired absence of left breast and nipple; G47.00 Insomnia, unspecified
CPT/HCPCS: 36415; 36600; 51702; 70030-TC; 70450; 70496; 70551; 71045; 74018; 76770; 83605; 83735; 84100; 84156; 84300; 84443; 85025; 85730; 86850; 86870; 86900; 86901; 87040; 87077; 87086; 93005; 93307; 94640; 97161; A4663; A9150; G0378; J0360; J0696; J1650; J1815; J1956; J2060; J2185; J2405; J2543; J2765; J3370; J3475; J3490; J7030; J7040; J7050; J7060; Q9967

== ENCOUNTER 2024-01-05 18:10 | Emergency (ER) | payer OTHER, MEDICAID ==
[~2024-01-05] VITALS: Ht 152.4 cm; Wt 53.5 kg
[~2024-01-05 18:10] MED LIST: ACET-73 PO; ALBU8.5H8 IH; ATEN50TA PO; CLON0.3T PO; CLON0.5T4 PO; COLC0.6C3 PO; FAMO20TA8 PO; LEVO50TA8 PO; METHYLCELLULOSE PO; MULT-213 PO; ROSU10TA2 PO; SPIR25TA6 PO; TERBINAFINE TOP; TRIA80OI2 TP; cholecalciferol PO
[2024-01-05] MEDS ORDERED: HYDR-894 PO (18:41)
[2024-01-05] MEDS ORDERED: ASPI81TA31 PO (18:41)
[2024-01-05] MEDS ORDERED: CLON1TAB12 PO (18:41)
[2024-01-05 18:58] LABS: BASOPHILS # (AUTO) 0.3 K/UL (0.0-0.2); BASOPHILS % (AUTO) 4.2 % (0.0-2.0); EOSINOPHILS # (AUTO) 0.3 K/uL (0.0-0.7); EOSINOPHILS % (AUTO) 5.3 % (0.0-7.0); HEMATOCRIT 32.3 % (31.2-41.9); HEMOGLOBIN 10.8 g/dL (10.9-14.3); LYMPHOCYTES # (AUTO) 0.6 K/uL (0.8-4.8); LYMPHOCYTES % (AUTO) 8.8 % (20.5-51.5); MEAN CORPUSCULAR HEMOGLOBIN 28.3 uug (24.7-32.8); MEAN CORPUSCULAR HGB CONC 33 g/dL (32.3-35.6); MEAN CORPUSCULAR VOLUME 84.9 fL (75.5-95.3); MONOCYTES # (AUTO) 0.5 K/uL (0.1-1.30); MONOCYTES % (AUTO) 7.4 % (0.0-11.0); NEUTROPHILS # (AUTO) 4.7 K/uL (1.8-8.9); NEUTROPHILS % (AUTO) 74.3 % (38.5-71.5); PLATELET COUNT (AUTO) 130 K/uL (179-408); RED CELL DISTRIBUTION WIDTH 14.1 % (12.3-17.7); WHITE BLOOD COUNT (AUTO) 6.3 K/uL (3.8-11.8)
[2024-01-05] MEDS: IV NORMAL SALINE 500 ML BAG IV ONE (19:10)
[2024-01-05 19:22] LABS: ALANINE AMINOTRANSFERASE 19 U/L (14-59); ALBUMIN 3.6 g/dL (3.4-5.0); ALKALINE PHOSPHATASE 109 U/L (50-136); ASPARTATE AMINOTRANSFERASE 19 U/L (15-37); BILIRUBIN,DIRECT 0.1 mg/dL (0.0-0.2); BILIRUBIN,TOTAL 0.5 mg/dL (0.2-1.0); CALCIUM 8.8 mg/dL (8.5-10.1); CARBON DIOXIDE 24 mmol/L (21-32); CHLORIDE 103 mmol/L (98-107); CREATININE 1.2 mg/dL (0.6-1.3); GLUCOSE 126 mg/dL (74-106); POTASSIUM 4.4 mmol/L (3.5-5.1); SODIUM SERUM 137 mmol/L (136-145); TOTAL PROTEIN, SERUM 7.4 g/dL (6.4-8.2); UREA NITROGEN, BLOOD 34 mg/dL (7-18)
[2024-01-05 19:23] LABS: DIFFERENTIAL COMMENT 1
[2024-01-05] MEDS ORDERED: FUROSEMIDE 20 MG/2 ML VIAL IV ONE (21:30)
[2024-01-05] MEDS ORDERED: INSULIN REGULAR, HUMAN 1000 UNIT/10 ML VIAL SQ PRN (22:00)
[2024-01-05] MEDS ORDERED: FAMOTIDINE 20 MG TABLET PO PRN (22:00)
[2024-01-05] MEDS ORDERED: ONDANSETRON 4 MG/2 ML VIAL IV PRN (22:00)
[2024-01-05] MEDS ORDERED: CLONAZEPAM 1 MG TABLET PO SCH (22:00)
[2024-01-05] MEDS ORDERED: MAGNESIUM HYDROXIDE 30 ML LIQUID UDC PO PRN (22:00)
[2024-01-05] MEDS ORDERED: DEXTROSE 50% 50 ML DISP.SYRIN IV PRN (22:00)
[2024-01-05] MEDS ORDERED: ACETAMINOPHEN 325 MG TABLET PO PRN (22:00)
[2024-01-05] MEDS ORDERED: ENOXAPARIN SODIUM 30 MG/0.3 ML DISP.SYRIN SUBCUT SCH (22:30)
[2024-01-05] MEDS ORDERED: ALBUTEROL SULFATE 2.5 MG/3 ML NEBU NEB PRN (22:30)
[2024-01-05 22:44] LABS: *BILIRUBIN,URIN NEGATIVE (NEGATIVE); *BLOOD, URINE NEGATIVE (NEGATIVE); *CLARITY,URINE CLEAR (CLEAR); *COLOR,URINE YELLOW (YELLOW); *KETONES,URINE NEGATIVE (NEGATIVE); *PROTEIN,URINE NEGATIVE (NEGATIVE); *UROBILINOGEN,URINE 0.2 E.U./dl (NORMAL); LEUKOCYTE ESTERASE ,URINE NEGATIVE (NEGATIVE); NITRITE, URINE NEGATIVE (NEGATIVE); PH,URINE 5.5 (5.0-8.0); UGLUCOSE NEGATIVE (NEGATIVE)
[2024-01-06 00:19] VITALS: O2SAT 96
[2024-01-06] MEDS ORDERED: BLOOD SUGAR DIAGNOSTIC 1 EACH STRIP VI SCH (07:30)
[2024-01-06] MEDS ORDERED: CLONIDINE HCL 0.3 MG TABLET PO SCH (09:00)
[2024-01-06] MEDS ORDERED: CHOLECALCIFEROL 400 UNITS TABLET PO SCH (09:00)
[2024-01-06] MEDS ORDERED: MULTIVITAMINS,THERAPEUTIC TABLET PO SCH (09:00)
[2024-01-06] MEDS ORDERED: SPIRONOLACTONE 25 MG TABLET PO SCH (09:00)
[2024-01-06] MEDS ORDERED: hydrALAZINE HCL 25 MG TABLET PO SCH (09:00)
[2024-01-06] MEDS ORDERED: ATENOLOL 50 MG TABLET PO SCH (09:00)
[2024-01-06] MEDS ORDERED: LEVOTHYROXINE SODIUM 50 MCG TABLET PO SCH (09:00)
[2024-01-06] MEDS ORDERED: ASPIRIN 81 MG TAB.CHEW PO SCH (09:00)
[2024-01-06] MEDS ORDERED: ATORVASTATIN 20 MG TABLET PO SCH (21:00)
== END 2024-01-06 00:30 | disposition short-term general hospital (02) ==
LOC: ER 18:25
DX: R53.1 Weakness (principal); I11.0 Hypertensive heart disease with heart failure; I50.9 Heart failure, unspecified; E11.9 Type 2 diabetes mellitus without complications; J45.909 Unspecified asthma, uncomplicated; R40.4 Transient alteration of awareness; Z79.82 Long term (current) use of aspirin; Z79.899 Other long term (current) drug therapy; Z85.3 Personal history of malignant neoplasm of breast; Z86.73 Personal history of transient ischemic attack (TIA), and cerebral infarction without residual deficits; Z90.12 Acquired absence of left breast and nipple; Z90.49 Acquired absence of other specified parts of digestive tract; Z90.5 Acquired absence of kidney; Z60.2 Problems related to living alone
CPT/HCPCS: 99285; 70450; 71045; 80076; 80048; 81003; 83880; 84443; 85025; 87040; 84484; 36415; 93005; 83605; J7040; A4606; A4663